=== PATIENT | male | born 1985 | race Caucasian/White ===

== ENCOUNTER 2016-06-30 17:30 | Emergency (ER) | payer SELFPAY ==
[2016-06-30 17:45] VITALS: BP 137/77
--- NOTE | 2016-06-30 18:56 | RAD ---
Indication: Nasal injury. 3 views of the nasal bone demonstrates a fracture through the distal tip of the right NaSal arch. There may be some minimal depression noted. IMPRESSION: Minimally depressed fracture of the distal nasal arch. This is likely on the right.
[2016-06-30] MEDS ORDERED: ceFAZolin 500 MG VIAL(*) 500 MG VIAL IM ONE (19:37)
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
== END 2016-06-30 20:19 | disposition home or self-care (01) ==
LOC: UCEAST 17:30
DX: S02.2XXA Fracture of nasal bones, initial encounter for closed fracture (principal); S06.0X0A Concussion without loss of consciousness, initial encounter; Y04.2XXA Assault by strike against or bumped into by another person, initial encounter; Y93.9 Activity, unspecified; Y92.9 Unspecified place or not applicable; F12.90 Cannabis use, unspecified, uncomplicated; F17.210 Nicotine dependence, cigarettes, uncomplicated
CPT/HCPCS: 70160; 96372; 99212; G0463; J0690

== ENCOUNTER 2016-12-12 18:17 | Emergency (ER) | payer MEDICAID, OTHER ==
[2016-12-12] MEDS ORDERED: Acetaminophen TAB* 325 MG PO ONE ×2 (18:24→18:28)
[2016-12-12] MEDS ORDERED: Acetaminophen TAB* 325 MG ONE ×2 (18:27)
--- NOTE | 2016-12-12 18:51 | UC ---
HPI Febrile Illness - HPI Summary HPI Summary: 2 weeks on /off of cough and fever, 4 weeks of left testicular discomfort - History of Current Complaint Hx Obtained From: Patient Onset/Duration: Started Weeks Ago - 2, Still Present Timing: Intermittent Initial Severity: Moderate Current Severity: Moderate Aggravating Factors: Nothing Alleviating Factors: Nothing Associated Signs and Symptoms: Arthralgia, Cough, Myalgia - Additional Pertinent History Primary Care Physician: [id number] <Devi Lr - Last Filed: 12/12/16 21:51> <Darlene Lorenz - Last Filed: 12/13/16 07:10> - History of Current Complaint Chief Complaint: UCGeneralIllness Time Seen by Provider: 12/12/16 19:00 - Allergy/Home Medications Allergies/Adverse Reactions: Allergies Allergy/AdvReac Type Severity Reaction Status Date / Time No Known Allergies Allergy Verified 04/25/16 14:13 PMH/Surg Hx/FS Hx/Imm Hx Previously Healthy: No Endocrine/Hematology History: Denies: Hx Diabetes, Hx Thyroid Disease Cardiovascular History: Denies: Hx Hypertension Respiratory History: Denies: Hx Asthma, Hx Chronic Obstructive Pulmonary Disease (COPD) GI History: Denies: Hx Ulcer Neurological History: Reports: Hx Seizures - temporal lobe, Pt denies any recollection of having a seizure Psychiatric History: Reports: Hx Anxiety, Hx Attention Deficit Hyperactivity Disorder, Hx Depression, Hx Community Mental Health Tx, Hx Suicide Attempt, Other Psychiatric Issues/Disorders - personality disorder, impulse control disorder Denies: Hx Eating Disorder, Hx Panic Disorder, Hx Post Traumatic Stress Disorder, Hx Inpatient Treatment, Hx Schizophrenia, Hx Bipolar Disorder, Hx Substance Abuse - Surgical History Surgery Procedure, Year, and Place: Pt has had surgery on his right shoulder and right hand when he was 15 y/o Infectious Disease History: No Infectious Disease History: Denies: Hx Clostridium Difficile, Hx Hepatitis, Hx Human Immunodeficiency Virus (HIV), Hx of Known/Suspected MRSA, Hx Shingles, Hx Tuberculosis, Hx Known/ Suspected VRE, Hx Known/Suspected VRSA, History Other Infectious Disease, Traveled Outside the [place] in Last 30 Days - Family History Known Family History: Positive: None, Other - blood clot disorder -- father Negative: Cardiac Disease, Hypertension, Diabetes - Social History Occupation: Employed Full-time Lives: With Family Alcohol Use: Rare Hx Substance Use: Yes Substance Use Type: Reports: Marijuana Substance Use Comment - Amount & Last Used: 4-5 days ago Smoking Status (MU): Heavy Every Day Tobacco Smoker Type: Cigarettes Do You Chew or Dip Tobacco: No Amount Used/How Often: 1/2 ppd Have You Smoked in the Last Year: Yes Household Exposure: No Cessation Counseling: Counseled 3+Min - 10 Min <Devi Lr - Last Filed: 12/12/16 21:51> Review of Systems Constitutional: Fever, Chills, Fatigue Skin: Negative Eyes: Negative ENT: Negative Respiratory: Cough Cardiovascular: Negative Gastrointestinal: Vomiting - from coughing Genitourinary: Other - left testicular pain for 4 weeks Motor: Negative Neurovascular: Negative Musculoskeletal: Negative Neurological: Negative Psychological: Negative All Other Systems Reviewed And Are Negative: Yes <Devi Lr - Last Filed: 12/12/16 21:51> Physical Exam Triage Information Reviewed: Yes Appearance: Well-Appearing, No Pain Distress, Obese Vital Signs: Initial Vital Signs Temp 102.5 F 12/12/16 18:22 Pulse 117 12/12/16 18:22 Resp 20 12/12/16 18:22 BP 136/78 12/12/16 18:22 Pulse Ox 99 12/12/16 18:22 Vital Signs Reviewed: Yes Eye Exam: Normal Eyes: Positive: Conjunctiva Clear ENT Exam: Normal ENT: Positive: Normal ENT inspection, Hearing grossly normal, Pharynx normal, TMs normal. Negative: Nasal congestion, Nasal drainage, Tonsillar swelling, Trismus, Muffled/hoarse voice Dental Exam: Normal Neck exam: Normal Neck: Positive: Supple, Nontender, No Lymphadenopathy Respiratory Exam: Normal Respiratory: Positive: Chest non-tender, Lungs clear, Normal breath sounds, No respiratory distress, No accessory muscle use Cardiovascular Exam: Normal Cardiovascular: Positive: RRR, No Murmur, Brisk Capillary Refill, Tachycardia Abdominal Exam: Normal Abdomen Description: Positive: Nontender, No Organomegaly, Soft. Negative: CVA Tenderness (R), CVA Tenderness (L), McBurney's Point Tenderness, Peritoneal Signs Bowel Sounds: Positive: Present Musculoskeletal Exam: Normal Musculoskeletal: Positive: Strength Intact, ROM Intact, No Edema Neurological Exam: Normal Neurological: Positive: Alert, Muscle Tone Normal Psychological Exam: Normal Skin Exam: Normal - Additional Comments testicles and scrotum with out lumps, erythema,warmth, no discrete tenderness <Devi Lr - Last Filed: 12/12/16 21:51> Vital Signs: Initial Vital Signs Temp 102.5 F 12/12/16 18:22 Pulse 117 12/12/16 18:22 Resp 20 12/12/16 18:22 BP 136/78 12/12/16 18:22 Pulse Ox 99 12/12/16 18:22 <Darlene Lorenz - Last Filed: 12/13/16 07:10> Diagnostics - Laboratory Diagnostic Studies Completed/Ordered: ua +ketones, bili , RST (-) - Radiology No standard instances Xray Interpretation: No Acute Changes Radiology Interpretation Completed By: Radiologist - EKG Cardiac Rate: Tachycardia Cardiac Rhythm: Sinus: Normal Ectopy: PVCs - rare PVC obsereved on rythm strip ST Segment: Normal <Devi Lr - Last Filed: 12/12/16 21:51> Course/Dx - Course Assessment/Plan: increase fluids, doxycycline, albuterol, nicotine cesastion information, follow with pcp 1-2 days - Febrile Illness Differential Diagnoses: Fever of Unknown Origin, GI Disease, Pneumonia, Pyelonephritis - Diagnoses Clinic Provider Diagnoses: Febrile illness, epidydimytis <Devi Lr - Last Filed: 12/12/16 21:51> Discharge <Devi Lr - Last Filed: 12/12/16 21:51> <Darlene Lorenz - Last Filed: 12/13/16 07:10> - Discharge Plan Condition: Stable Disposition: HOME Prescriptions: Albuterol HFA INHALER* [Ventolin HFA Inhaler*] 2 puff INH Q6H PRN #1 mdi PRN Reason: cough DOXYcycline CAP(*) [DOXYcycline 100MG CAP(*)] 100 mg PO BID #28 cap Patient Education Materials: How to Stop Smoking (ED), Epididymitis (ED), Fever in Adults (ED), Premature Ventricular Contractions (ED) Referrals: [facility] [place] [facility] [Outside] - 5 Days Attestation Statement User Type: Provider - I was available for consult. This patient was seen by the ADAL. The patient was not presented to, seen by, or examined by me. -Kelly <Darlene Lorenz - Last Filed: 12/13/16 07:10>
--- NOTE | 2016-12-12 19:49 | RAD ---
INDICATION: Cough and fever x2 weeks COMPARISON: Chest x-ray dated October 09, 2011 TECHNIQUE: PA and lateral views of the chest were obtained. FINDINGS: Surgical clips are again noted overlying the lateral right upper thorax. The heart and mediastinum are normal in size and contour. The lungs are grossly clear. There is no evidence of large pleural effusion. Visualized bones are normal for the patient's age. There is no radiographic evidence of free air beneath the diaphragm IMPRESSION: No radiographic evidence of acute cardiopulmonary disease.
[2016-12-12] MEDS ORDERED: DOXYcycline CAP(*) 100 MG PO ONE (20:27)
[2016-12-12] MEDS ORDERED: Albuterol HFA INHALER* 8 gm MDI INH ONE (20:28)
[2016-12-12 20:52] VITALS: BP 123/75
== END 2016-12-12 20:55 | disposition home or self-care (01) ==
LOC: UCEAST 18:17
DX: N45.1 Epididymitis (principal); R56.9 Unspecified convulsions; F41.9 Anxiety disorder, unspecified; F90.9 Attention-deficit hyperactivity disorder, unspecified type; F32.9 Major depressive disorder, single episode, unspecified; F12.90 Cannabis use, unspecified, uncomplicated; F17.210 Nicotine dependence, cigarettes, uncomplicated; E66.9 Obesity, unspecified; R50.9 Fever, unspecified
CPT/HCPCS: 71020; 81003; 87491; 87591; 87651; 93005; 99213; A9270-GY; G0463